=== PATIENT | female | born 1990 | race Caucasian/White ===

== ENCOUNTER 2025-06-27 16:43 | Emergency (ER) | payer OTHER, SELFPAY ==
[2025-06-27] VITALS (7 sets, daily range): BP systolic 109–122; BP diastolic 86–91; PULSE 79–99; RESP 14–18; TEMP 36.4; O2SAT 96–99; BMI 21.6
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
--- OUTSIDE RECORDS SUMMARY | 2025-06-27 17:59 | XMS_ITS | Clinical Summary ---
Author Organization [facility] Address [address] [place] [id number] Care Team Providers Care Casino Enforcement Agent Name Role Phone Pcp, No Primary Care Provider Unavailabl e Allergies No known active allergies Medications escitalopram oxalate (LEXAPRO) 20 mg tabletIndication s:Anxiety associated with depression Take 1 tablet by mouth once daily. Takes 3/4 of pill for 15 mg 0 5 Active levonorgestrel intrauterine device (MIRENA) 20 mcg/24 hr (5 years) IUDIndications:E ncounter for IUD insertion Inject 1 Device intrauterine one time. 1 Device 0 6 Active lactobacillus rhamnosus, GG, (CULTURELLE) 10 billion cell capsuleIndicatio ns:Diarrhea, unspecified type Take 1 capsule by mouth 2 times daily. 20 capsule 7 Active Hospital, Clinic, or Other Facility Administered Medication Ordered Dose Route Frequency Start Date End Date Status levonorgestrel intrauterine device 1 Device (MIRENA)Indications:Encounter for IUD insertion 1 Device IU Q 5 YEARS 07/05/2016 Active Active Problems Problem Noted Date Diagnosed Date Anxiety and depression 06/29/2015 Overview (06/29/2015): Lexapro IUD (intrauterine device) in place 06/29/2015 Overview (06/29/2015): Mirena placed 10/2014 Immunizations Immunization Administration Dates Next Due Human Papilloma Virus Vaccine 12/07/2007, 007,06/03/2007 Tdap 06/29/2014 Family History Medical History Relation Name Comments Good Health Father Hyperlipidemia Mother Relation Name Status Comments Father Mother Social History Tobacco Use Types Packs/Day Years Used Date Smoking Tobacco: Light Smoker Cigarettes Smokeless Tobacco: Never Tobacco Cessation:Ready to Q uit: No; Counseling Given: Yes Alcohol Use Standard Drinks/Week Comments Yes 0 (1 standard drink = 0.6 oz pur e alcohol) occ Comments No Sex and Gender Information Value Date Recorded Sex Assigned at Not on file Legal Sex Female 4:53 PM CDT Gender Identity Not on file Sexual Orientation Not on file Occupation Industry Job Start Date Job End Date Not on file Not on file Not on file Not on file Obstetrics History Para Term AB IAB SAB Ectopic Multiple Livin g Live Births 2 2 2 0 0 0 0 0 0 2 2 Date Outcome GA Total Labor Labor/2nd/3rd Weight Sex Type Anes PTL Jacquelin A1 A5 Name Clin 06/06 Term 2.95 kg (6 lb 8 oz) M Vag Living Case 09/15 Term 2.61 kg (5 lb 12 oz) F Vag Living [facility] Last Filed Vital Signs Vital Sign Reading Time Taken Comments Blood Pressure 97/58 01/02/2020 6:00 AM CDT Pulse 68 01/02/2020 6:00 AM CDT Temperature 36.7 C (98 F) 01/01/2020 11:12 PM BIOFUELS TECHNOLOGY MANAGER Respiratory Rate 18 01/01/2020 11:12 PM BIOFUELS TECHNOLOGY MANAGER Oxygen Saturation 94% 01/02/2020 6:00 AM CDT Inhaled Oxygen Concentration - - Weight 54.4 kg (120 lb) 01/01/2020 11:12 PM BIOFUELS TECHNOLOGY MANAGER Height 168.9 cm (5' 6.5) 01/01/2020 11:12 PM CS T Body Mass Index 19.08 01/01/2020 11:12 PM BIOFUELS TECHNOLOGY MANAGER Plan of Treatment Health Maintenance Due Date Last Done Comments HIV for age 15-65 2006 Hepatitis C screening for ag e 18-79 2009 Hepatitis B series for 19+ ( 1 of 3 - 19+ 3-dose series) 2010 Pap test for age 21-65 2012 Depression screening for age 12+ 07/05/2017 07/05/2016 BMI (ht and wt on same day) for age 18+ 07/18/2018 07/18/2017, 07/05/2016 COVID-19 vaccine series ( season) 2024 10/02/2021 Tetanus booster 06/29/2024 06/29/2014 Influenza Vaccine (#1) 2025 Pneumococcal series for age 6-49 Aged Out No longer eligible b ased on patient's [place] [id number] [place] [address] [place] [id number] Care Teams Casino Enforcement Agent Relationship Specialty Start Date End Date Pcp, No . PCP - General 04/14/18
--- OUTSIDE RECORDS SUMMARY | 2025-06-27 18:00 | XMS_ITS | Encounter Summary ---
Author Organization [facility] Address [address], [place] [address] Care Team Providers Care Qa Software Tester Name Role Phone Radha Malave APRN, CNP Primary Care Provid er Encounter Details Date Type Department Care Team (Late st Contact Info) Description 03/17/2025 Results [facility] [address] [place] [address] Nica Vasquez APRN, PARISH [address] [facility] 5th Floor [place], [place] [id number] Social History Tobacco Use Types Packs/Day Years Used Date Smoking Tobacco: Former Cigarettes - 2006 Passive Smoke Exposure: Past Smokeless Tobacco: Never Alcohol Use Standard Drinks/Week Comments Not Currently 0 (1 standard drink = 0.6 oz pur e alcohol) occ AUDIT-C Answer Date Recorded Q1: How often do you have a drink containing alc ohol? Never 06/02/2020 Average Number of Drinks Not on file 020 Frequency of Binge Drinking Not on file 04/2020 PHQ-2 Answer Date Recorded PHQ-2 Score 1 11/13/2023 Financial Resource Strain Answer Date R ecorded Is it hard for you to pay fo r the very basics like food, housing, medical care or heating? No 11/10/2023 Food Insecurity Answer Date Recorded Does your food run out before you have the money to buy more? No 11/10/2023 Transportation Needs Answer Date Record ed Does a lack of transportatio n keep you from your medical appointments or from getting your medications? No 024 Comments No Sex and Gender Information Value Date Recorded Sex Assigned at Not on file Legal Sex Female 11:01 AM CDT Gender Identity Not on file Sexual Orientation Not on file documented as of this encounter Plan of Treatment Not on file documented as of this encounter Visit Diagnoses Not on filedocumented in this encounter Care Teams Qa Software Tester Relationship Specialty Start Date End Date Radha Malave APRN, JUDD [address] [address] PCP - General Nurse Practitioner 09/05/21 documented as of this encounter
--- OUTSIDE RECORDS SUMMARY | 2025-06-27 18:00 | XMS_ITS | Encounter Summary ---
Author Organization [facility] Address [address] [address] Care Team Providers Care Fan Runner Name Role Phone Radha Malave APRN, CNP Primary Care Provid er Encounter Details Date Type Department Care Team (Late st Contact Info) Description 03/15/2025 Results Follow-Up [facility] [address] [facility] [place], [place] [id number] Saida Diaz APRN, PARISH [address] [place], [place] [id number] Social History Tobacco Use Types Packs/Day Years [...] on filedocumented in this encounter Care Teams Fan Runner Relationship Specialty Start Date End Date Radha Malave, SOLUTION SPEC, STAVE BLOCK SPLITTER [address] [place] [address] PCP - General Nurse Practitioner 09/05/21 documented as of this encounter
--- OUTSIDE RECORDS SUMMARY | 2025-06-27 18:00 | XMS_ITS | Clinical Summary ---
[facility] Address [address], [place] [address] Care Team Providers Care Zumba Instructor Name Role Phone Radha Malave APRN, CNP Primary Care Provid er Source Comments You are receiving this document as you are listed as the primary care provider,follow-up provider, or the patient has been referred to you for consultation.This is in compliance with the Medicare andMedicaid EHR Incentive Program,which states Providers who transition their patient to another setting of careor provider of care or refers their patient to another provider of care shouldprovide summary care record for each transition of care or referral. Zinitix Allergies Active Allergy Reactions Criticality Noted Date Comments Buspirone Other, see comments 07/26/2021 Worsening depression Medications Melatonin 5 MG Take 2 Capsules (10 mg) by mouth at bedtime as needed (sleep). 07/26/20 21 Active levonorgestrel (MIRENA) 20 MCG/DAY IUDIndications:En counter for removal and reinsertion of intrauterine contraceptive device 1 Each by Intrauterine route continuous. 11/26/19 23 031 Active sertraline (ZOLOFT) 25 MG tabletIndications :Depression, major, recurrent, moderate (HRC),Anxiety (HRC) Take 2 Tablets (50 mg) by mouth daily. Must be seen for additional refills 180 Tablet 1 12/16/19 25 Active Active Problems Problem Noted Date Diagnosed Date Mixed anxiety depressive disorder 06/29/2015 Overview (09/05/2021): Lexapro IUD (intrauterine device) in place 06/29/2015 Overview (09/05/2021): Mirena placed 10/2014 Mirena since 10/2014 Resolved Problems Problem Noted Date Diagnosed Date Resolved Date Alcohol use disorder, moderate, dependence 05/23/2022 03/16/2025 Overview (2024): In remission for over 2 years Tobacco use 09/27/2015 2024 Immunizations Immunization Administration Dates Next Due 4vHPV (Gardasil) 12/07/2007,08/03/2007, 7 Flu Vac Preserv Free (3+yrs) 09/24/2016 HepB Ped/Adol (0-18 yrs) 01/28/2005,08/30/2004,0 07/23/2004 HepB, Unspecified Formulation 01/28/2005, 004,07/23/2004 IPV (Polio) 01/26/1997, 3,1991,1990 Influenza IIV4 (Quadrivalent ) 0.5mL (23952) 07/26/2021,09/24/2016 Influenza, Unspecified Formulation 10/04/2009, MMR 01/26/1997,1991 Moderna Monovalent 12+ 01/06/2021,12/09/2020 PCV20 (Bmyyjqi04) 2024 Pfizer Monovalent 12+ Purple Top 10/02/2021 Tdap 02/27/2024,06/29/2014 Family History Medical History Relation Name Comments Anxiety Mother Depression Mother Hypertension Mother Coronary Artery Disease Maternal Grandfather ADHD Son Relation Name Status Comments Mother Maternal Grandfather Son Social History Tobacco Use Types Packs/Day Years Used Date Smoking Tobacco: Former Cigarettes 2 021 - 2006 Passive Smoke Exposure: Past Smokeless Tobacco: Never Tobacco Cessation:Counseling Given: Not Answered Alcohol Use Standard Drinks/Week Comments Not Currently [...] on file Sexual Orientation Not on file Last Filed Vital Signs Vital Sign Reading Time Taken Comments Blood Pressure 127/80 03/16/2025 9:52 AM CDT Pulse 67 03/16/2025 9:52 AM CDT Temperature 36.8 C (98.3 F) 02/18/2025 10:17 AM CDT Respiratory Rate 18 02/18/2025 10:17 AM CDT Oxygen Saturation 98% 02/18/2025 10:17 AM CDT Inhaled Oxygen Concentration - - Weight 57.6 kg (127 lb) 03/16/2025 9:52 AM CDT Height 171.5 cm (5' 7.5) 2024 9:50 AM CDT Body Mass Index 19.6 2024 9:50 AM CDT Plan of Treatment Health Maintenance Due Date Last Done Comments COVID-19 Vaccine ( season) 2024 10/02/2021, 01/06/2021, 12/09/2020 Influenza Vaccine (#1) 2025 1, 09/24/2016, 09/24/2016, Additional history exists Adult Preventive Visit 2026 4, 05/23/2022, 05/21/2021 Cervical Cancer Screening 05/21/2026 05/21/2021, DTaP/Tdap/Td Vaccine (3 - Tdap) 02/26/2034 02/27/2024, 06/29/2014 Zoster/Shingles Vaccine (1 of 2) 2041 IPV (Polio) Vaccine Completed 01/26/1997, 11/01/1992, 1991, Additional history exists HepB Vaccine Completed 01/28/2005, 01/2005, 08/30/2004, Additional history exists HPV Vaccine Completed 12/07/2007, 05/2007, 06/03/2007 HIV Screening (Preventive Services) Completed 05/23/2022, 05/21/2021 Hep C Screening (Preventive Services) Completed 05/23/2022 Pneumococcal Vaccine Completed 2024 HepA Vaccine Aged Out No longer eligi ble based on patient's age to complete this topic Hib Vaccine Aged Out No longer eligi ble based on patient's age to complete this topic MCV4 Vaccine Aged Out No longer eligi ble based on patient's age to complete this topic Meningococcal B Vaccine Aged Out No l onger eligible based on patient's age to complete this topic Procedures Procedure Name Priority Date/Time Associated Diagnosis Comments HIV 1/2 AG/AB 4TH GEN Routine 05/23/2022 4:26 PM CDT Routine health maintenance HEPATITIS C ANTIBODY, WITH REFLEX (ANTI-HCV) Routine 05/23/2022 4:26 PM CDT Routine health maintenance CYTOLOGY (PAP) Routine 05/21/2021 3:55 PM CDT Screening for malignant neoplasm of cervix from Last 3 Months or Most Recently Relevant to Health Maintenance Results * HIV 1/2 Ag/Ab 4th Generation (05/23/2022 4:26 PM CDT) HIV 1/2 Antigen/Anti body (4th generation) Negative (Non Reactive) Negative (Non Reactive) 05/24/2022 11:55 AM CDT [facility] Comment:HIV-1 p24 Antigen an d HIV-1/HIV-2 Antibody not detected Blood Venipuncture / Unknown 05/23/2022 4:26 PM CDT 05/23/2022 4:27 PM CDT Radha Malave APRN, SANDBLASTER SUPERVISOR LAB_1 Seble l Result Performing Organization Address [facility]/ZIP Co de Phone Number [facility] [address] [place] [address] * Hepatitis C Antibody, with Reflex (05/23/2022 4:26 PM CDT) Hepatitis C Antibody Negative (Non Reactive) Negative (Non Reactive) 05/24/2022 11:55 AM CDT [facility] Comment:Antibodies to HCV no t detected. Does not exclude the possiblity of exposure to HCV. Blood Venipuncture / Unknown 05/23/2022 4:26 PM CDT 05/23/2022 4:27 PM CDT Radha Malave APRN, JUDD LAB_1 Se[place] Result Performing Organization Address [facility] Co de Phone Number [facility] [address] [place] [address] * PAP Test (05/21/2021 3:55 PM CDT) Case Report Pap Case: [id number] Authorizing Provider: Radha Malave APRN, Collected: 05/21/2021 1555 SANDBLASTER SUPERVISOR Ordering Location: [facility] Received: 05/21/2021 1618 Practice First Screen: Raquel Jones, CT (ASCP) Specimen: Pap Test, Routine, Cervix/Endocervix 05/30/2021 1:02 PM CDT [facility] Pap Specimen Adequacy Satisfactory for evaluation, endocervical/toussaint sformation zone component present. 05/30/2021 1:02 PM CDT [facility] Pap Interpretation Negative for intraepithelial lesion or malignancy (NILM). 05/30/2021 1:02 PM T [facility] at 1302 CDT Pap Other Findings Shift in erich suggestive of bacterial vaginosis. 05/30/2021 1:02 PM T [facility] Pap Disclaimer The Pap test is a screening test designed to aid in the detection of cervical cancer and its precursor lesions. It is not a diagnostic procedure and should not be used as the sole means of detecting cervical cancer. Both false-positive and false-negative results may occur. 05/30/2021 1:02 PM T [facility] Gross Description The specimen is received in SurePath fixative and properly labeled. 1 Pap-stained SurePath slide is prepared. 05/30/2021 1:02 PM T [facility] Embedded Images 1:02 PM [facility] Other Specimen Type ENTIRE ENDOCERVIX / Unknown 05/21/2021 3:55 PM CDT 05/21/2021 4:18 PM CDT Comment:LMP: No LMP recorded . (Menstrual status: IUD). us Radha Malave APRN, CNP LAB PATHOLOGY Se[place] [facility] Result Performing Organization Address City/State/[facility] Co de Phone Number [address] [address], [facility] [phone] from Last 3 Months or Most Recently Relevant to Health Maintenance Insurance R HP COMM FULLY INSURED DENTAL [place] PMAP ADULT DENTAL [facility] Advance Directives * Full Code (Latest Code Status on File) Date Activated Date Inactivated Comments 04/14/2019 11:10 PM 04/15/2019 2:07 PM Care Teams Zumba Instructor Relationship Specialty Start Date End Date Radha Malave APRN, SANDBLASTER SUPERVISOR [address] [place] [address] PCP - General Nurse Practitioner 09/05/21
--- OUTSIDE RECORDS SUMMARY | 2025-06-27 18:00 | XMS_ITS | Clinical Summary ---
Author Organization [facility] Address [address] [place] [id number] Care Team Providers Care Train Crew Member Name Role Phone Unavailable Primary Care Provider Unavailabl e Allergies Active Allergy Reactions Criticality Noted Date Comments Buspirone Other 07/26/2021 Worsening depression Medications levonorgestreL (MIRENA) 20 mcg/24 hours (8 yrs) 52 mg IU IUD 1 Device by Intrauterine route. 3 11/24/19 31 Active rOPINIRole (REQUIP) 0.25 mg oral tablet Take 1-2 tablets (0.25-0.5 mg) by mouth. 2 Active escitalopram oxalate (LEXAPRO) 20 mg oral tablet Take 1 tablet (20 mg) by mouth once daily. 4 Active Immunizations Immunization Administration Dates Next Due Tdap 02/27/2024 Social History Tobacco Use Types Packs/Day Years Used Date Smoking Tobacco: Every Day Cigarettes E - Cigarettes Smokeless Tobacco: Never Tobacco Cessation:Ready to Q uit: Not Asked; Counseling Given: Not Answered Alcohol Use Standard Drinks/Week Comments Yes 0 (1 standard drink = 0.6 oz pur e alcohol) Social Humiliation, Afraid, Rape, and Kick questionnair e Answer Date Recorded Within the last year, have y ou been afraid of your partner or ex-partner? No 02/27/2024 Within the last year, have y ou been humiliated or emotionally abused in other ways by your partner or ex-partner? No Within the last year, have y ou been kicked, hit, slapped, or otherwise physically hurt by your partner or ex-partner? No 02/27/2024 Within the last year, have y ou been raped or forced to have any kind of sexual activity by your partner or ex-partner? No 02/27/2024 Comments Unknown Sex and Gender Information Value Date Recorded Sex Assigned at Not on file Legal Sex Female 4:12 PM [employer] Gender Identity Not on file Sexual Orientation Not on file Last Filed Vital Signs Vital Sign Reading Time Taken Comments Blood Pressure 121/85 02/27/2024 7:16 AM CDT Pulse 72 02/27/2024 7:16 AM CDT Temperature 37.2 C (99 F) 02/27/2024 7:16 AM CDT Respiratory Rate 18 02/27/2024 7:16 AM CDT Oxygen Saturation 100% 02/27/2024 7:16 AM CDT Inhaled Oxygen Concentration - - Weight - - Height 170.2 cm (5' 7) 01/13/2023 6:14 AM CDT Body Mass Index - - Plan of Treatment Health Maintenance Due Date Last Done Comments Hepatitis C Screening 1991 Pap Smear 1991 Anxiety Screening (RUDDY-2) 1992 Depression Assessment (PHQ-2) 1992 COVID-19 Vaccine ( season) 2024 10/02/2021, 01/06/2021, 12/09/2020 Influenza Vaccine (#1) 2025 , 09/24/2016, 10/04/2009, Additional history exists Adult Tetanus Booster 02/26/2034 02/27/2024, 014 RSV Vaccines (1 - 1-dose 75+ series) 2066 HPV Vaccine Completed 12/07/2007, 05/2007, 06/03/2007 Meningococcal B Vaccine Aged Out No l onger eligible based on patient's age to complete this topic Pneumococcal Vaccine Aged Out No long er eligible based on patient's age to complete this topic Insurance [facility] , [id number] [facility] [place] [address] [facility] Advance Directives For more information, please contact: [phone] * Full Code (Latest Code Status on File) Date Activated Date Inactivated Comments 12/02/2019 11:26 PM 12/03/2019 12:08 PM Question Answer Comments How was code status determined? Physician Yovani schuster
== END 2025-06-27 18:57 | disposition home or self-care (01) ==
PROVIDERS: Emergency Provider Emergency Medicine Emergency Medical Services
DX: S43.401A Unspecified sprain of right shoulder joint, initial encounter (principal); S50.01XA Contusion of right elbow, initial encounter; V19.3XXA Pedal cyclist (driver) (passenger) injured in unspecified nontraffic accident, initial encounter
CPT/HCPCS: 73030; 73080; 96374; 99283; 99284; J1171